=== PATIENT | female | born 1950 | race Caucasian/White ===

== ENCOUNTER → 2018-06-22 | Outpatient (CLI) | payer OTHER ==
[~2018-06-22] MED LIST: AMBIEN 10 MG TA10 MG PO; BIOIDENTICAL HORMONE; D-20002000 UNIT PO; FISH OIL 1,0001 EAC5 PO; HYDROCODON-ACE1 EAC4 PO; HYDROCODON-ACE1 EAC7 PO; IBUPROFEN 200200 M1 PO; KEFLEX500 MG PO; LASIX 40 MG TAB40 M2 PO; MAGNESIUM250 M1 PO; MULTIVITAMINS PO; OCUVITE TABLET1 EAC1 PO; ONDANSETRON ODT4 MG PO; PERCOCET 5-3251 EACH PO; POTASSIUM20 PO; ROXICET 5-3251 EACH PO; TAMSULOSIN HCL0.4 MG PO; TOBRAMYCIN-DEXAM5 ML OPHTHALMIC; VICODIN 5-5001 EACH PO; VYVANSE40 MG PO; XANAX 0.5 MG0.5 M1 PO; ZOFRAN ODT4 MG PO
== END ==
LOC: RAD 09:51
DX: Z12.31 Encounter for screening mammogram for malignant neoplasm of breast (principal); F32.9 Major depressive disorder, single episode, unspecified; F41.9 Anxiety disorder, unspecified

== ENCOUNTER → 2019-10-22 | Outpatient (CLI) | payer OTHER | LOC: BC 08:56 | DX: Z12.31 Encounter for screening mammogram for malignant neoplasm of breast (principal) ==

== ENCOUNTER → 2019-12-14 | Outpatient (CLI) | payer OTHER | LOC: CAT 13:08 | DX: R51 Headache (principal) ==

== ENCOUNTER → 2020-06-03 | Outpatient (CLI) | payer OTHER | LOC: LAB 13:11 | DX: Z20.828 Contact with and (suspected) exposure to other viral communicable diseases (principal) ==

== ENCOUNTER → 2020-09-29 | Outpatient (CLI) | payer OTHER | LOC: LAB 11:01 | PROVIDERS: ATTEND Family Medicine | DX: R05 Cough (principal); R51.9 Headache, unspecified; R53.1 Weakness; R19.7 Diarrhea, unspecified; Z20.828 Contact with and (suspected) exposure to other viral communicable diseases ==

== ENCOUNTER → 2020-12-08 | Outpatient (CLI) | payer OTHER | LOC: LAB 14:03 | PROVIDERS: ATTEND Family Medicine | DX: U07.1 COVID-19 (principal) ==

== ENCOUNTER → 2021-10-26 | Outpatient (CLI) | payer OTHER, MEDICARE ==
[2021-10-26 10:07] LABS: MCHC 32.5 g/dL (28.0-37.0)
[2021-10-26 10:09] LABS: ABSOLUTE NEUTROPHILS 3.5 thou/uL (1.4-8.2); BASOPHILS 0.8 % (0.0-2.0); EOSINOPHILS 3.9 % (0.0-3.0); HEMATOCRIT 38.9 % (37.0-47.0); HEMOGLOBIN 12.6 gm/dL (12.0-15.0); LYMPHOCYTES 31.3 % (24.0-44.0); MCH 28.5 pg (26.0-34.0); MCV 87.7 fL (80.0-100.0); MONOCYTES 6.6 % (1.0-8.0); PLATELET COUNT 247 thou/uL (150-400); POLYS 57.4 % (36.0-66.0); RBC 4.43 mil/uL (4.20-5.00); RDW 13.2 % (10.5-14.5); WBC 6.2 thou/uL (4.0-11.0)
[2021-10-26 10:27] LABS: ALBUMIN 3.7 g/dL (3.4-5.0); ANION GAP 8 mmol/L (7-16); BUN 26 mg/dL (7-18); CHLORIDE 103 mmol/L (98-107); CHOLESTEROL 216 mg/dL (<200); CO2 29 mmol/L (21-32); CREATININE 0.9 mg/dL (0.6-1.0); GLUCOSE 107 mg/dL (74-106); HDL CHOLESTEROL 85 mg/dL (>40); LDL CHOLESTEROL 126 mg/dL (<100); POTASSIUM 3.8 mmol/L (3.5-5.1); SGOT 17 U/L (15-37); SGPT 20 U/L (30-65); SODIUM 140 mmol/L (136-145); TC:HDL 2.5 Ratio (Not establshd); TOTAL BILIRUBIN 0.5 mg/dL (0.2-1.0); TOTAL PROTEIN 6.6 g/dL (6.4-8.2); TRIGLYCERIDE 26 mg/dL (<150); VLDL 5 mg/dL (<40)
== END ==
LOC: LAB 09:29
PROVIDERS: ATTEND Family Medicine
DX: Z00.00 Encounter for general adult medical examination without abnormal findings (principal); E55.9 Vitamin D deficiency, unspecified

== ENCOUNTER → 2021-11-10 | Outpatient (CLI) | payer OTHER, MEDICARE | LOC: BC 10-26 11:34 | PROVIDERS: ATTEND Specialist | DX: Z12.31 Encounter for screening mammogram for malignant neoplasm of breast (principal); N64.89 Other specified disorders of breast ==